=== PATIENT | male | born 1990 | race African-American/Black ===

== ENCOUNTER 2024-01-14 15:24 | Emergency (ER) | payer MEDICAID, OTHER ==
[~2024-01-14] VITALS: Ht 182.9 cm; Wt 70.7 kg
[2024-01-14 15:58] VITALS: BP 148/83; PULSE 82; RESP 16; O2SAT 98
== END 2024-01-14 18:27 | disposition left against medical advice (07) ==
LOC: ER 15:24
DX: S01.81XA Laceration without foreign body of other part of head, initial encounter (principal); Z53.21 Procedure and treatment not carried out due to patient leaving prior to being seen by health care provider; W22.8XXA Striking against or struck by other objects, initial encounter; Y93.89 Activity, other specified; Y92.89 Other specified places as the place of occurrence of the external cause; Y99.8 Other external cause status